=== PATIENT | female | born 1965 | race Caucasian/White ===

== ENCOUNTER 2016-09-22 14:55 | Emergency (ER) | payer BC ==
[2016-09-22] MEDS ORDERED: DILAUDID 1 MG/ML AMP ONE ×2 (16:14→17:34)
[2016-09-22] MEDS ORDERED: ONDANSETRON 4 MG VIAL ONE ×2 (16:15→17:34)
[2016-09-22] MEDS ORDERED: SODIUM CHLORIDE 0.9% 1,000 ML ONE (16:15)
== END 2016-09-22 21:01 | disposition home or self-care (01) ==
LOC: ER 14:55
DX: R55 Syncope and collapse (principal); K21.0 Gastro-esophageal reflux disease with esophagitis
CPT/HCPCS: 36415; 74022; 74177; 80053; 81003; 82553; 82947; 83690; 84484; 84703; 85025; 93005; 96361; 96374; 96375; 96376